=== PATIENT | female | born 1970 ===

== ENCOUNTER 2023-04-15 10:30 | Outpatient (CLI) | payer OTHER | END 2023-04-15 10:47 | disposition home or self-care (01) | LOC: SONOGRAMA 10:30 | PROVIDERS: ATTEND Obstetrics & Gynecology | DX: N84.0 Polyp of corpus uteri (principal) ==

== ENCOUNTER 2024-03-14 07:53 | Day surgery (SDC) | payer OTHER ==
[2024-03-07 13:09] VITALS: BP 104/70
[~2024-03-14] VITALS: Ht 152.4 cm; Wt 90.3 kg
[~2024-03-14 07:53] MED LIST: ATACAND HCT 161 EACH PO
[2024-03-14] MEDS ORDERED: POVIDONE-IODINE 118 ML BOTT TOP ONE (12:30)
[2024-03-14] MEDS ORDERED: TYLENOL325 MG PO (13:17)
== END 2024-03-14 17:40 | disposition home or self-care (01) ==
LOC: CIR.AMB 07:53
PROVIDERS: ATTEND Obstetrics & Gynecology Gynecology
DX: N84.0 Polyp of corpus uteri (principal); I10 Essential (primary) hypertension; E11.9 Type 2 diabetes mellitus without complications; Z88.6 Allergy status to analgesic agent; Z91.013 Allergy to seafood